=== PATIENT | male | born 1995 | race Caucasian/White ===

== ENCOUNTER 2024-05-05 09:31 | Emergency (ER) | payer BC, SELFPAY ==
[2024-05-05 09:34] VITALS: BP 123/76
--- NOTE | 2024-05-05 09:54 | ED.SKININJ ---
HPI-Injury
General
Chief Complaint: Bite
Source: patient
Exam Limitations: none
Time Seen by Provider: 05/05/24 09:41
Nursing documentation reviewed up to this point in time: agreed with
History of Present Illness-Injury
Initial Injury comments:
29 yo male was bitten by a dog left flank area 04/25. 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 He has played with the dog before. 10 days ago the dog was at his home, leaning against him as he was petting it and suddenly 'he
nipped me.' Dog is UTD with immunizations
Pt saw PCP 04/28 and has been taking Augmentin 875 mg BID for 7 days. Area has been improving.
Last night in shower, noted pus drainage from the upper most puncture so came here for evaluation.
Denies fever, states he's had sweats past 2 nights. Feels well otherwise.
Past History
Past History
ED Past Medical History: Psychiatric (ADHD on [place])
Social History
Tobacco: Non-smoker
Alcohol: None
Personal:
Living: with family
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
Review of Systems
Review of Systems
Allergies reviewed?: Yes
All Other Systems: ROS reviewed and negative except as documented in HPI and ROS
Constitutional: Denies fever or chills
ABD/GI: Denies abdominal pain, nausea or vomiting
Skin: Reports other (dog bite left flank healing well)
Phy Exam
Physical Exam
Physical Exam:
PHYSICAL EXAMINATION:
General: no apparent distress, not acutely ill
Neuro: alert and oriented.
Psychiatric: well kept. interactive and cooperative
Musculoskeletal: Moves with ease
Skin: Warm, pink. Two abrasions surrounded by old mild ecchymosis left flank. No drainage, no erythema. No swelling. Appears to be healing well.
Course
Vital Signs
Initial and Last Documented VS:
Initial Vital Signs
Temp Pulse Resp BP Pulse Ox
98.2 F 86 18 123/76 100
05/05/24 09:34 05/05/24 09:34 05/05/24 09:34 05/05/24 09:34 05/05/24 09:34
Last Documented Vital Signs
Temp Pulse Resp BP Pulse Ox
98.2 F 86 18 123/76 100
05/05/24 09:34 05/05/24 09:34 05/05/24 09:34 05/05/24 09:34 05/05/24 09:34
MDM/Problems Addressed
MDM/Problems Addressed:
29 yo male was bitten by a dog left flank area 04/25. 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 He has played with the dog before. 10 days ago the dog was at his home, leaning against him as he was petting it and suddenly 'he
nipped me.' Dog is UTD with immunizations
Pt saw PCP 04/28 and has been taking Augmentin 875 mg BID for 7 days and Tdap. Area has been improving.
Last night in shower, noted pus drainage from the upper most puncture so came here for evaluation.
Denies fever, states he's had sweats past 2 nights. Feels well otherwise.
Afebrile, NAD
Wound appears to be healing well, no drainage, picture taken and scanned into chart
No further treatment needed at this time.
*Critical Care Note
Total Time (30-74mins, 75-104mins- exclusive of procedures): Not Applicable
ED Attending Note
-
Portions of this chart may have been created with voice recognition software.� Occasional wrong word or��sound alike� substitutions may have occurred due to the inherent limitations of voice recognition software.
Discharge Plan
Departure
Patient Disposition: Home (Routine Discharge)
Date of Disposition: 05/05/24
Time of Disposition: 10:06
Patient with high blood pressure during this ER visit?: No
Condition: Good
Discharge Problem:
Visit for wound check
Instructions: Animal Bites (DC)
Activity Restrictions/Additional Instructions:
As we discussed, the area seem to be healing well.
Continue Augmentin as ordered.
Interventions
Interventions:
*Risk Screen - Suicide Last Done: 05/05/24 09:34
*General Assessment Last Done: 05/05/24 09:34
*Neglect/Abuse Screening Last Done: 05/05/24 09:34
*ED COVID-19 Vaccine History Last Done: 05/05/24 09:34
*Nursing Disposition Last Done: 05/05/24 10:45
ED-Skin Assessment Last Done: 05/05/24 10:30
Discharge Date and Time
Discharge Date/Time: 05/05/24 10:46
Print Language: CROATIAN
--- NOTE | 2024-05-05 10:13 | WOUNDNOTE ---
Wound/Skin Care Note: pt identified by name and .
L flank
== END 2024-05-05 10:46 | disposition home or self-care (01) ==
LOC: EMR 09:31
PROVIDERS: EMERGENCY PHYSICIAN Student in an Organized Health Care Education/Training Program; FAMILY PHYSICIAN Nurse Practitioner Gerontology
DX: Z48.00 Encounter for change or removal of nonsurgical wound dressing (principal); S31.139A Puncture wound of abdominal wall without foreign body, unspecified quadrant without penetration into peritoneal cavity, initial encounter; W54.0XXA Bitten by dog, initial encounter; Z79.2 Long term (current) use of antibiotics
CPT/HCPCS: 99282